=== PATIENT | male | born 1965 | race Hispanic/Latino ===

== ENCOUNTER → 2019-01-14 | Day surgery (SDC) | payer OTHER ==
[2019-01-08 10:45] LABS: BASOPHILS % 0.3 % (0.0-1.0); EOSINOPHILS # (AUTO) 0.1 (0.0-0.4); EOSINOPHILS % 1.9 % (0.0-6.0); HEMATOCRIT 33.7 % (38.2-49.6); HEMOGLOBIN 10.9 g/dL (14.0-18.0); LYMPHOCYTES # (AUTO) 1.1 (1.0-3.2); LYMPHOCYTES % 34.2 % (18.0-39.1); MEAN CORPUSCULAR HEMOGLOBIN 28.2 pg (28-32); MEAN CORPUSCULAR HGB CONC 32.3 g/dL (31-35); MEAN CORPUSCULAR VOLUME 87.3 fL (81-99); MONOCYTES # (AUTO) 0.4 (0.2-0.8); MONOCYTES % 11.3 % (4.4-11.3); NEUTROPHILS # (AUTO) 1.6 (2.1-6.9); PLATELET COUNT 100 x10e3/uL (140-360); RED BLOOD COUNT 3.86 x10e6/uL (4.3-5.7); RED CELL DISTRIBUTION WIDTH 13.6 % (11.7-14.4)
[2019-01-08 11:06] LABS: INR 1.11; PROTHROMBIN TIME 14.8 seconds (11.9-14.5)
[2019-01-08 11:07] LABS: PARTIAL THROMBOPLASTIN TIME 27.9 seconds (23.8-35.5)
[2019-01-08 11:10] LABS: ALANINE AMINOTRANSFERASE 76 IU/L (0-55); ALBUMIN 3.7 g/dL (3.5-5.0); ALKALINE PHOSPHATASE 119 IU/L (40-150); ANION GAP 12.1 mmol/L (8-16); BLOOD UREA NITROGEN 16 mg/dL (7-26); BUN/CREATININE RATIO 21 (6-25); CALCIUM 9.3 mg/dL (8.4-10.2); CARBON DIOXIDE 24 mmol/L (22-29); CHLORIDE 104 mmol/L (98-107); CREATININE, SERUM 0.75 mg/dL (0.72-1.25); EST GLOMERULAR FILTRATION RATE > 60 ML/MIN (60-); GLUCOSE 239 mg/dL (74-118); POTASSIUM 4.1 mmol/L (3.5-5.1); SODIUM 136 mmol/L (136-145)
[~2019-01-14] MED LIST: FENTANYL CITRATE/PF 100MCG/2 ML INJ ONE; METFORMIN HCL500 MG PO; MIDAZOLAM HCL 2 MG/2 ML VIAL ONE; OMEPRAZOLE40 MG PO; PROPOFOL IV EMULSION 10 MG/ML 20 ML VIAL ONE; PROPRANOLOL HCL10 MG PO; PROTONIX40 MG PO; ULTRACET TABLE1 EACH PO; ULTRAM50 MG PO
[2019-01-14 13:15] VITALS: BP 123/82
== END | disposition home or self-care (01) ==
LOC: OR 10:03
PROVIDERS: ATTEND Internal Medicine Gastroenterology
DX: I85.00 Esophageal varices without bleeding (principal); K76.0 Fatty (change of) liver, not elsewhere classified; K29.00 Acute gastritis without bleeding; K44.9 Diaphragmatic hernia without obstruction or gangrene; K74.60 Unspecified cirrhosis of liver; E11.9 Type 2 diabetes mellitus without complications; E66.9 Obesity, unspecified; N20.0 Calculus of kidney; Z79.84 Long term (current) use of oral hypoglycemic drugs; Z68.38 Body mass index [BMI] 38.0-38.9, adult; Z01.810 Encounter for preprocedural cardiovascular examination; Z01.812 Encounter for preprocedural laboratory examination
CPT/HCPCS: 36415; 43239; 43255; 80053; 82948; 85025; 85610; 85730; 93005; J2250; J3010

== ENCOUNTER → 2019-02-11 | Day surgery (SDC) | payer OTHER ==
[2019-02-09 09:45] LABS: BASOPHILS % 0.3 % (0.0-1.0); EOSINOPHILS # (AUTO) 0.1 (0.0-0.4); EOSINOPHILS % 1.9 % (0.0-6.0); HEMATOCRIT 33.5 % (38.2-49.6); HEMOGLOBIN 10.7 g/dL (14.0-18.0); LYMPHOCYTES # (AUTO) 1.2 (1.0-3.2); LYMPHOCYTES % 36.4 % (18.0-39.1); MEAN CORPUSCULAR HEMOGLOBIN 26.3 pg (28-32); MEAN CORPUSCULAR HGB CONC 31.9 g/dL (31-35); MEAN CORPUSCULAR VOLUME 82.3 fL (81-99); MONOCYTES # (AUTO) 0.4 (0.2-0.8); MONOCYTES % 11.6 % (4.4-11.3); NEUTROPHILS # (AUTO) 1.6 (2.1-6.9); NEUTROPHILS % 49.5 % (38.7-80.0); PLATELET COUNT 93 x10e3/uL (140-360); RED BLOOD COUNT 4.07 x10e6/uL (4.3-5.7); RED CELL DISTRIBUTION WIDTH 14.6 % (11.7-14.4)
[2019-02-09 09:55] LABS: INR 1.09; PROTHROMBIN TIME 14.6 seconds (11.9-14.5)
[2019-02-09 09:56] LABS: PARTIAL THROMBOPLASTIN TIME 27.9 seconds (23.8-35.5)
[2019-02-09 10:02] LABS: ALANINE AMINOTRANSFERASE 60 IU/L (0-55); ALBUMIN 3.5 g/dL (3.5-5.0); ALBUMIN/GLOBULIN RATIO 0.9 (0.8-2.0); ALKALINE PHOSPHATASE 102 IU/L (40-150); BLOOD UREA NITROGEN 18 mg/dL (7-26); BUN/CREATININE RATIO 23 (6-25); CALCIUM 9.3 mg/dL (8.4-10.2); CARBON DIOXIDE 24 mmol/L (22-29); CHLORIDE 105 mmol/L (98-107); CREATININE, SERUM 0.78 mg/dL (0.72-1.25); EST GLOMERULAR FILTRATION RATE > 60 ML/MIN (60-); GLUCOSE 230 mg/dL (74-118); SODIUM 137 mmol/L (136-145)
[~2019-02-11] MED LIST changes: -FENTANYL CITRATE/PF 100MCG/2 ML INJ ONE; +INSULIN REGULAR, HUMAN 100 UNIT/1 ML 3ML VIAL ONE; +LIDOCAINE HCL 2% LOCAL INJ 5 ML SDV VIAL INJ ONE
[2019-02-11 12:11] VITALS: BP 125/74
== END | disposition home or self-care (01) ==
LOC: OR 15:30
PROVIDERS: ATTEND Internal Medicine Gastroenterology
DX: K29.00 Acute gastritis without bleeding (principal); K44.9 Diaphragmatic hernia without obstruction or gangrene; K74.60 Unspecified cirrhosis of liver; I85.00 Esophageal varices without bleeding; Z71.3 Dietary counseling and surveillance; E11.9 Type 2 diabetes mellitus without complications; E66.9 Obesity, unspecified; Z68.38 Body mass index [BMI] 38.0-38.9, adult; K76.0 Fatty (change of) liver, not elsewhere classified; K80.80 Other cholelithiasis without obstruction; N20.0 Calculus of kidney; Z79.84 Long term (current) use of oral hypoglycemic drugs; Z01.812 Encounter for preprocedural laboratory examination; I10 Essential (primary) hypertension
CPT/HCPCS: 36415 ×2; 43244; 80053; 82948; 85025; 85610; 85730; J2001; J2250; J2704; 43255; J1817

== ENCOUNTER → 2019-03-25 | Day surgery (SDC) | payer OTHER ==
[2019-03-24 09:44] LABS: BASOPHILS % 0.2 % (0.0-1.0); HEMATOCRIT 35.2 % (38.2-49.6); HEMOGLOBIN 11.2 g/dL (14.0-18.0); LYMPHOCYTES # (AUTO) 1.2 (1.0-3.2); LYMPHOCYTES % 29.5 % (18.0-39.1); MEAN CORPUSCULAR HEMOGLOBIN 24.6 pg (28-32); MEAN CORPUSCULAR HGB CONC 31.8 g/dL (31-35); MEAN CORPUSCULAR VOLUME 77.2 fL (81-99); MONOCYTES # (AUTO) 0.4 (0.2-0.8); MONOCYTES % 8.7 % (4.4-11.3); NEUTROPHILS # (AUTO) 2.5 (2.1-6.9); NEUTROPHILS % 60.4 % (38.7-80.0); PLATELET COUNT 93 x10e3/uL (140-360); RED BLOOD COUNT 4.56 x10e6/uL (4.3-5.7); RED CELL DISTRIBUTION WIDTH 16.8 % (11.7-14.4)
[2019-03-24 09:55] LABS: INR 1.08; PROTHROMBIN TIME 14.5 seconds (11.9-14.5)
[2019-03-24 09:56] LABS: PARTIAL THROMBOPLASTIN TIME 28.6 seconds (23.8-35.5)
[2019-03-24 10:03] LABS: ALANINE AMINOTRANSFERASE 53 IU/L (0-55); ALBUMIN 3.5 g/dL (3.5-5.0); ALBUMIN/GLOBULIN RATIO 0.9 (0.8-2.0); ALKALINE PHOSPHATASE 96 IU/L (40-150); ANION GAP 12.2 mmol/L (8-16); BLOOD UREA NITROGEN 13 mg/dL (7-26); BUN/CREATININE RATIO 18 (6-25); CALCIUM 9.2 mg/dL (8.4-10.2); CARBON DIOXIDE 24 mmol/L (22-29); CHLORIDE 105 mmol/L (98-107); CREATININE, SERUM 0.73 mg/dL (0.72-1.25); EST GLOMERULAR FILTRATION RATE > 60 ML/MIN (60-); GLUCOSE 198 mg/dL (74-118); POTASSIUM 4.2 mmol/L (3.5-5.1); SODIUM 137 mmol/L (136-145)
[2019-03-24 11:11] LABS: EOSINOPHILS % (MANUAL) 1 % (0-7); LYMPHOCYTES % (MANUAL) 29 % (19-48); MONOCYTES % (MANUAL) 10 % (3.4-9.0); NEUTROPHILS % (MANUAL) 60 % (40-74); PLATELET ESTIMATE SLIGHTLY DECREASED; PLATELET MORPHOLOGY COMMENT NORMAL; RBC MORPHOLOGY COMMENT NORMAL
[~2019-03-25] MED LIST changes: +FENTANYL CITRATE/PF 100MCG/2 ML INJ ONE; -INSULIN REGULAR, HUMAN 100 UNIT/1 ML 3ML VIAL ONE; -MIDAZOLAM HCL 2 MG/2 ML VIAL ONE
[2019-03-25 12:25] VITALS: BP 117/75
== END | disposition home or self-care (01) ==
LOC: OR 10:14
PROVIDERS: ATTEND Internal Medicine Gastroenterology
DX: K74.60 Unspecified cirrhosis of liver (principal); K29.70 Gastritis, unspecified, without bleeding; I85.10 Secondary esophageal varices without bleeding; K44.9 Diaphragmatic hernia without obstruction or gangrene; R74.0 Nonspecific elevation of levels of transaminase and lactic acid dehydrogenase [LDH]; E66.9 Obesity, unspecified; E11.9 Type 2 diabetes mellitus without complications; Z01.812 Encounter for preprocedural laboratory examination; Z68.36 Body mass index [BMI] 36.0-36.9, adult; Z80.0 Family history of malignant neoplasm of digestive organs
CPT/HCPCS: 36415 ×2; 43239; 80053; 82948; 85025; 85610; 85730; J2001; J2704; J3010